=== PATIENT | male | born 1950 | race Caucasian/White ===

== ENCOUNTER 2023-05-10 18:48 | Emergency (ER) | payer OTHER ==
[2023-05-10 18:56] VITALS: TEMP 97.4; BMI 31.7
[2023-05-10] MEDS ORDERED: morphine CARPU-JECT 2 MG/1 ML DISP.SYRIN IVPUSH ONE (19:57)
[2023-05-10] MEDS ORDERED: TAMSULOSIN HCL 0.4 MG CAP PO ONE (19:58)
[2023-05-10 20:26] LABS: EPI CELLS 13 /uL (0-25.1); HYALINE CASTS 4 /uL (0-3.1); URINE APPEARANCE CLEAR; URINE BACTERIA 12 /uL (0-1359); URINE BILIRUBIN NEGATIVE (NEGATIVE); URINE COLOR YELLOW; URINE GLUCOSE (UA) NEGATIVE (NEGATIVE); URINE KETONE TRACE (NEGATIVE); URINE LEUK ESTERASE 1+ (NEGATIVE); URINE NITRITE NEGATIVE (NEGATIVE); URINE PROTEIN 1+ (NEGATIVE); URINE RBC 11 /uL (0-23.9); URINE WBC 206 /uL (0-25.8)
[2023-05-10] MEDS ORDERED: TAMSULOSIN HCL 0.4 MG CAP ONE (20:27)
[2023-05-10 20:48] LABS: BASO % 0.8 % (0-2.0); EOS % 1.1 % (0-4.5); HEMATOCRIT 37.5 % (35.4-49); HEMOGLOBIN 12.6 GM/dL (11.7-16.9); LYMPH % 15.5 % (8-40); MCHC 33.5 g/dl (32.0-35.9); MEAN CELL VOLUME 89.6 fl (80-96); MEAN PLT VOLUME 6.8 fl (7.5-11.1); MONO % 9.4 % (3.8-10.2); NEUT % 73.2 % (42.8-82.8); PLATELET COUNT 309 10^3/uL (134-434); RBC 4.19 M/mm3 (4.00-5.60); RDW 14.8 % (11.9-15.9); WHITE BLOOD COUNT 7.8 K/mm3 (4.0-10.0)
[2023-05-10 20:50] VITALS: RESP 20
[2023-05-10 21:10] LABS: ALBUMIN 3.6 g/dl (3.4-5.0); BLOOD UREA NITROGEN 15.1 mg/dL (7-18); CALCIUM 9.5 mg/dL (8.5-10.1)
[2023-05-10 21:14] LABS: CREATININE 1.2 mg/dL (0.55-1.3)
[2023-05-10 21:15] LABS: BILIRUBIN,TOTAL 0.6 mg/dL (0.2-1); TOT PROT 7.7 g/dl (6.4-8.2)
[2023-05-10] MEDS ORDERED: CEFTRIAXONE 1 GM in DEXTROSE 5%-WATER - 100 ML IVPB ONE (21:15)
[2023-05-10] MEDS ORDERED: LOSARTAN POTASSIUM 25 MG TABLET PO ONE (21:50)
[2023-05-10] MEDS ORDERED: LOSARTAN POTASSIUM 25 MG TABLET ONE (22:00)
[2023-05-10] MEDS ORDERED: CEFTRIAXONE 1 GM/50 ML BAG ONE (22:00)
[2023-05-10] MEDS ORDERED: amLODIPine BESYLATE 10 MG TABLET (FP) PO ONE (22:00)
[2023-05-10] MEDS ORDERED: amLODIPine BESYLATE 10 MG TABLET (FP) ONE (22:01)
[2023-05-10 22:18] VITALS: BP 168/99; PULSE 71
== END 2023-05-10 22:32 | disposition home or self-care (01) ==
LOC: JER 18:48
PROC: 3E03329 Introduction of Other Anti-infective into Peripheral Vein, Percutaneous Approach (ICD-10-PCS; principal; 2023-05-10)
PROC: 3E033GC Introduction of Other Therapeutic Substance into Peripheral Vein, Percutaneous Approach (ICD-10-PCS; 2023-05-10)
DX: R10.31 Right lower quadrant pain (principal); N39.0 Urinary tract infection, site not specified; I10 Essential (primary) hypertension; R30.9 Painful micturition, unspecified
CPT/HCPCS: 36415; 74176-TC; 80053; 81003; 85025; 87086; 93005; 93010; 99285-25

== ENCOUNTER 2023-05-11 18:42 | Inpatient (IN) | payer OTHER ==
[2023-05-11] MEDS ORDERED: morphine CARPU-JECT 2 MG/1 ML DISP.SYRIN IVPUSH ONE (19:49)
[2023-05-11 20:22] LABS: BASO % 1.2 % (0-2.0); EOS % 1.9 % (0-4.5); HEMATOCRIT 38.3 % (35.4-49); HEMOGLOBIN 12.9 GM/dL (11.7-16.9); LYMPH % 11.5 % (8-40); MCH 30.3 pg (25.7-33.7); MCHC 33.6 g/dl (32.0-35.9); MEAN CELL VOLUME 90.2 fl (80-96); MEAN PLT VOLUME 6.7 fl (7.5-11.1); MONO % 15.6 % (3.8-10.2); NEUT % 69.8 % (42.8-82.8); PLATELET COUNT 288 10^3/uL (134-434); RBC 4.25 M/mm3 (4.00-5.60); WHITE BLOOD COUNT 4.9 K/mm3 (4.0-10.0)
[2023-05-11 20:41] LABS: ALBUMIN 3.4 g/dl (3.4-5.0); BLOOD UREA NITROGEN 14.3 mg/dL (7-18); CALCIUM 9.2 mg/dL (8.5-10.1)
[2023-05-11 20:44] LABS: CREATININE 1.3 mg/dL (0.55-1.3)
[2023-05-11 20:46] LABS: BILIRUBIN,TOTAL 0.4 mg/dL (0.2-1); TOT PROT 7.7 g/dl (6.4-8.2)
[2023-05-11] MEDS ORDERED: ACETAMINOPHEN 1000 MG/100 ML BAG IVPB ONE (23:46)
[2023-05-11] MEDS ORDERED: morphine CARPU-JECT 4 MG/1 ML DISP.SYRIN IVPUSH ONE (23:46)
[2023-05-11] MEDS ORDERED: LIDOCAINE 5% TOPICAL PATCH TP ONE (23:47)
[2023-05-12] MEDS ORDERED: CEFTRIAXONE 1,000 MG in DEXTROSE 5%-WATER - 50 ML IVPB ONE (00:03)
[2023-05-12] MEDS ORDERED: ACETAMINOPHEN INJECTION 100 ML IVPB ONE (00:13)
[2023-05-12] MEDS ORDERED: LIDOCAINE 5% TOPICAL PATCH ONE (00:13)
[2023-05-12] MEDS ORDERED: CEFTRIAXONE 1 GM/50 ML BAG ONE (00:41)
[2023-05-12] MEDS ORDERED: oxyCODONE HCL 5 MG TABLET PO PRN ×2 (05:05→12:59)
[2023-05-12] MEDS ORDERED: GABAPENTIN 300 MG CAPSULE PO SCH (05:30)
[2023-05-12] MEDS ORDERED: SODIUM CHLORIDE 1,000 ML IV SCH (06:00)
[2023-05-12 09:08] VITALS: BMI 30.5
[2023-05-12 09:34] LABS: BASO % 1.4 % (0-2.0); EOS % 2.8 % (0-4.5); HEMATOCRIT 35.4 % (35.4-49); HEMOGLOBIN 11.9 GM/dL (11.7-16.9); LYMPH % 16.3 % (8-40); MCH 29.9 pg (25.7-33.7); MCHC 33.5 g/dl (32.0-35.9); MEAN CELL VOLUME 89.5 fl (80-96); MEAN PLT VOLUME 6.9 fl (7.5-11.1); MONO % 22.3 % (3.8-10.2); NEUT % 57.2 % (42.8-82.8); PLATELET COUNT 263 10^3/uL (134-434); RBC 3.96 M/mm3 (4.00-5.60); RDW 15.1 % (11.9-15.9); WHITE BLOOD COUNT 4.2 K/mm3 (4.0-10.0)
[2023-05-12 09:54] LABS: MAGNESIUM 2.1 mg/dL (1.8-2.4)
[2023-05-12 09:56] LABS: PHOSPHOROUS 4.4 mg/dL (2.5-4.9)
[2023-05-12] MEDS ORDERED: CEFTRIAXONE 1 GM in DEXTROSE 5%-WATER - 50 ML IVPB SCH (10:00)
[2023-05-12] MEDS ORDERED: FLUoxetine HCL 20 MG CAPSULE PO SCH (10:00)
[2023-05-12] MEDS: DULoxetine HCL 30 MG CAPSULE.DR PO SCH (10:03)
[2023-05-12] MEDS: LOSARTAN POTASSIUM 25 MG TABLET PO SCH (10:03)
[2023-05-12] MEDS: APIXABAN 5 MG TABLET PO SCH ×2 (10:03→21:10)
[2023-05-12] MEDS: PREGABALIN 75 MG CAPSULE PO SCH ×2 (10:03→21:11)
[2023-05-12 10:36] LABS: ANISOCYTOSIS 0; HELMET CELLS 0; HOWELL-JOLLY BODIES 0; MACROCYTOSIS 0; OVALOCYTE 0; ROULEAU 0; SICKELED CELLS 0; TARGET CELLS 0; TEAR DROP CELLS 0; TOXIC GRANULATION 0
[2023-05-12] MEDS ORDERED: LIDOCAINE PATCH REMOVAL MC ONE (12:00)
[2023-05-12 13:21] LABS: URINE APPEARANCE CLEAR; URINE BILIRUBIN 1+ (NEGATIVE); URINE COLOR DK YELLOW; URINE GLUCOSE (UA) NEGATIVE (NEGATIVE); URINE KETONE TRACE (NEGATIVE)
[2023-05-12 13:22] LABS: EPI CELLS 9 /uL (0-25.1); PH,URINE 5.5 (5.0-8.0); URINE LEUK ESTERASE NEGATIVE (NEGATIVE); URINE NITRITE NEGATIVE (NEGATIVE); URINE PROTEIN 1+ (NEGATIVE); URINE RBC 20 /uL (0-23.9); URINE WBC 103 /uL (0-25.8)
[2023-05-12 13:23] LABS: HYALINE CASTS 0.29 /uL (0-3.1); URINE BACTERIA 48 /uL (0-1359)
[2023-05-12 17:49] LABS: POTASSIUM 3.8 mmol/L (3.5-5.1)
[2023-05-12 17:51] LABS: BLOOD UREA NITROGEN 16.6 mg/dL (7-18); CALCIUM 8.8 mg/dL (8.5-10.1)
[2023-05-12 17:52] LABS: ALBUMIN 3.2 g/dl (3.4-5.0)
[2023-05-12 17:55] LABS: CREATININE 1.3 mg/dL (0.55-1.3)
[2023-05-12 17:56] LABS: BILIRUBIN,TOTAL 0.5 mg/dL (0.2-1); TOT PROT 6.9 g/dl (6.4-8.2)
[2023-05-12] MEDS: TERAZOSIN HCL 5 MG CAPSULE PO SCH (21:11)
[2023-05-12] MEDS: SENNOSIDES/DOCUSATE COMBO (SENNA PLUS) TABLET (UD) PO SCH (21:11)
[2023-05-13] MEDS: PREGABALIN 75 MG CAPSULE PO SCH ×2 (10:05→22:06)
[2023-05-13] MEDS: LOSARTAN POTASSIUM 25 MG TABLET PO SCH (10:05)
[2023-05-13] MEDS: DULoxetine HCL 30 MG CAPSULE.DR PO SCH (10:05)
[2023-05-13] MEDS: APIXABAN 5 MG TABLET PO SCH ×2 (10:05→22:06)
[2023-05-13 11:07] LABS: BASO % 1.8 % (0-2.0); EOS % 3.5 % (0-4.5); HEMATOCRIT 35.8 % (35.4-49); HEMOGLOBIN 12.2 GM/dL (11.7-16.9); LYMPH % 19.7 % (8-40); MCH 30.4 pg (25.7-33.7); MCHC 34.1 g/dl (32.0-35.9); MEAN CELL VOLUME 89.3 fl (80-96); MEAN PLT VOLUME 6.8 fl (7.5-11.1); MONO % 18.6 % (3.8-10.2); NEUT % 56.4 % (42.8-82.8); PLATELET COUNT 254 10^3/uL (134-434); RBC 4.01 M/mm3 (4.00-5.60); RDW 14.7 % (11.9-15.9)
[2023-05-13 11:36] LABS: POTASSIUM 3.6 mmol/L (3.5-5.1)
[2023-05-13 11:46] LABS: CALCIUM 8.8 mg/dL (8.5-10.1)
[2023-05-13 11:47] LABS: BLOOD UREA NITROGEN 12.7 mg/dL (7-18)
[2023-05-13 11:50] LABS: CREATININE 1.1 mg/dL (0.55-1.3); PHOSPHOROUS 3.5 mg/dL (2.5-4.9)
[2023-05-13] MEDS ORDERED: ACETAMINOPHEN 1000 MG/100 ML BAG IVPB ONE (15:03)
[2023-05-13] MEDS: ACETAMINOPHEN 325 MG TABLET (FP) PO SCH (20:12)
[2023-05-13] MEDS: SENNOSIDES/DOCUSATE COMBO (SENNA PLUS) TABLET (UD) PO SCH (22:06)
[2023-05-13] MEDS: TERAZOSIN HCL 5 MG CAPSULE PO SCH (22:06)
[2023-05-14] MEDS: ACETAMINOPHEN 325 MG TABLET (FP) PO SCH ×3 (02:54→20:25)
[2023-05-14] MEDS: PREGABALIN 75 MG CAPSULE PO SCH ×2 (09:27→22:42)
[2023-05-14] MEDS: APIXABAN 5 MG TABLET PO SCH ×2 (09:28→22:43)
[2023-05-14] MEDS: LOSARTAN POTASSIUM 25 MG TABLET PO SCH (09:28)
[2023-05-14] MEDS: DULoxetine HCL 30 MG CAPSULE.DR PO SCH (09:28)
[2023-05-14 09:51] LABS: BASO % 1.2 % (0-2.0); EOS % 6.6 % (0-4.5); HEMATOCRIT 38.6 % (35.4-49); HEMOGLOBIN 12.6 GM/dL (11.7-16.9); LYMPH % 31.2 % (8-40); MCH 29.9 pg (25.7-33.7); MCHC 32.6 g/dl (32.0-35.9); MEAN CELL VOLUME 91.6 fl (80-96); MEAN PLT VOLUME 7.4 fl (7.5-11.1); MONO % 13.4 % (3.8-10.2); NEUT % 47.6 % (42.8-82.8); PLATELET COUNT 279 10^3/uL (134-434); RBC 4.21 M/mm3 (4.00-5.60); RDW 14.8 % (11.9-15.9); WHITE BLOOD COUNT 4.1 K/mm3 (4.0-10.0)
[2023-05-14 10:16] LABS: BLOOD UREA NITROGEN 19.5 mg/dL (7-18)
[2023-05-14 10:17] LABS: ALBUMIN 3.2 g/dl (3.4-5.0)
[2023-05-14 10:18] LABS: CALCIUM 8.9 mg/dL (8.5-10.1)
[2023-05-14 10:19] LABS: MAGNESIUM 2.1 mg/dL (1.8-2.4); PHOSPHOROUS 3.6 mg/dL (2.5-4.9)
[2023-05-14 10:20] LABS: BILIRUBIN,TOTAL 0.4 mg/dL (0.2-1); CREATININE 1.1 mg/dL (0.55-1.3)
[2023-05-14 10:21] LABS: TOT PROT 7.3 g/dl (6.4-8.2)
[2023-05-14 14:06] VITALS: RESP 18
[2023-05-14] MEDS: oxyCODONE HCL 5 MG TABLET PO PRN (18:11)
[2023-05-14] MEDS: SENNOSIDES/DOCUSATE COMBO (SENNA PLUS) TABLET (UD) PO SCH (22:42)
[2023-05-14] MEDS: TERAZOSIN HCL 5 MG CAPSULE PO SCH (22:43)
[2023-05-15] MEDS: ACETAMINOPHEN 325 MG TABLET (FP) PO SCH ×2 (03:28→11:11)
[2023-05-15] MEDS: oxyCODONE HCL 5 MG TABLET PO PRN ×4 (06:52→19:31)
[2023-05-15 09:30] VITALS: TEMP 97.8
[2023-05-15] MEDS: LOSARTAN POTASSIUM 25 MG TABLET PO SCH (09:31)
[2023-05-15] MEDS: DULoxetine HCL 30 MG CAPSULE.DR PO SCH (09:31)
[2023-05-15] MEDS: APIXABAN 5 MG TABLET PO SCH (09:31)
[2023-05-15] MEDS: PREGABALIN 75 MG CAPSULE PO SCH (09:31)
[2023-05-15 13:28] VITALS: BP 125/63; PULSE 72
== END 2023-05-15 19:55 | disposition home or self-care (01) | DRG 563 ==
LOC: JER 18:42 → JERBED 05-12 02:43 → J6S 05-12 04:51
PROVIDERS: ADMIT Internal Medicine; ATTEND Internal Medicine
DX: S39.012A Strain of muscle, fascia and tendon of lower back, initial encounter (principal); I69.351 Hemiplegia and hemiparesis following cerebral infarction affecting right dominant side; I48.91 Unspecified atrial fibrillation; I44.7 Left bundle-branch block, unspecified; I44.0 Atrioventricular block, first degree; N40.0 Benign prostatic hyperplasia without lower urinary tract symptoms; L81.8 Other specified disorders of pigmentation; R80.9 Proteinuria, unspecified; R33.8 Other retention of urine; M54.9 Dorsalgia, unspecified; I12.9 Hypertensive chronic kidney disease with stage 1 through stage 4 chronic kidney disease, or unspecified chronic kidney disease; N18.9 Chronic kidney disease, unspecified; X58.XXXA Exposure to other specified factors, initial encounter; Y92.9 Unspecified place or not applicable; Y99.9 Unspecified external cause status
CPT/HCPCS: 36415; 72148-TC; 74177-TC; 80048; 80053; 81003; 83605; 83735; 84100; 84484; 85025; 85027; 87086; 93005; 93010; 97116-GP; 97162-GP; 99285-25; Q9967

== ENCOUNTER 2023-05-19 17:40 | Emergency (ER) | payer OTHER ==
[2023-05-19 17:53] VITALS: BP 143/69; PULSE 67; RESP 18; TEMP 99; BMI 32.1
== END 2023-05-19 19:52 | disposition left against medical advice (07) ==
LOC: JER 17:40
DX: M54.9 Dorsalgia, unspecified (principal)
CPT/HCPCS: 99281-25

== ENCOUNTER 2023-05-20 09:31 | Inpatient (IN) | payer OTHER ==
[2023-05-20 09:48] VITALS: BMI 32.1
[2023-05-20] MEDS ORDERED: LIDOCAINE 5% TOPICAL PATCH TP ONE (10:55)
[2023-05-20] MEDS ORDERED: LIDOCAINE 5% TOPICAL PATCH ONE (11:31)
[2023-05-20 12:15] LABS: BASO % 0.8 % (0-2.0); EOS % 3.3 % (0-4.5); HEMATOCRIT 38.7 % (35.4-49); HEMOGLOBIN 12.5 GM/dL (11.7-16.9); LYMPH % 24.7 % (8-40); MCH 29.7 pg (25.7-33.7); MCHC 32.4 g/dl (32.0-35.9); MEAN CELL VOLUME 91.7 fl (80-96); MEAN PLT VOLUME 7.4 fl (7.5-11.1); NEUT % 63.2 % (42.8-82.8); PLATELET COUNT 311 10^3/uL (134-434); RBC 4.22 M/mm3 (4.00-5.60); RDW 14.6 % (11.9-15.9); WHITE BLOOD COUNT 6.1 K/mm3 (4.0-10.0)
[2023-05-20 12:24] LABS: INR 1.09 (0.83-1.09); PROTHROMBIN TIME (PATIENT) 12.6 SEC (9.7-13.0)
[2023-05-20 12:26] LABS: ACTIVATED PTT 33.4 SECONDS (25.2-36.5)
[2023-05-20] MEDS ORDERED: morphine CARPU-JECT 4 MG/1 ML DISP.SYRIN IVPUSH ONE (12:37)
[2023-05-20 12:50] LABS: ALBUMIN 3.5 g/dl (3.4-5.0); BLOOD UREA NITROGEN 16.8 mg/dL (7-18); CALCIUM 9.3 mg/dL (8.5-10.1)
[2023-05-20 12:53] LABS: CREATININE 1.1 mg/dL (0.55-1.3)
[2023-05-20 12:55] LABS: BILIRUBIN,TOTAL 0.3 mg/dL (0.2-1); TOT PROT 7.7 g/dl (6.4-8.2)
[2023-05-20] MEDS ORDERED: morphine SULFATE 4 MG/ML VIAL ONE (13:24)
[2023-05-20] MEDS ORDERED: oxyCODONE HCL 5 MG TABLET PO PRN (13:31)
[2023-05-20] MEDS ORDERED: ACETAMINOPHEN 500 MG TABLET (FP) PO PRN (13:32)
[2023-05-20] MEDS ORDERED: APIXABAN 5 MG TABLET ONE (22:56)
[2023-05-20] MEDS ORDERED: PREGABALIN 50 MG CAPSULE ONE (22:56)
[2023-05-20] MEDS ORDERED: PREGABALIN 25 MG CAPSULE ONE (22:56)
[2023-05-20] MEDS ORDERED: oxyCODONE HCL 5 MG TABLET ONE (22:57)
[2023-05-20] MEDS: PREGABALIN 75 MG CAPSULE PO SCH (23:46)
[2023-05-20] MEDS: APIXABAN 5 MG TABLET PO SCH (23:46)
[2023-05-20] MEDS: LIDOCAINE PATCH REMOVAL MC SCH (23:46)
[2023-05-20] MEDS: SENNOSIDES/DOCUSATE COMBO (SENNA PLUS) TABLET (UD) PO SCH (23:46)
[2023-05-21] MEDS: METOPROLOL TARTRATE 25 MG TABLET (FP) PO SCH ×4 (03:18→21:23)
[2023-05-21] MEDS: LIDOCAINE 5% TOPICAL PATCH TP SCH (09:32)
[2023-05-21] MEDS: APIXABAN 5 MG TABLET PO SCH ×2 (09:32→21:23)
[2023-05-21] MEDS: SIMETHICONE 80 MG TAB.CHEW (FP) PO PRN (13:45)
[2023-05-21] MEDS: ACETAMINOPHEN 500 MG TABLET (FP) PO SCH ×2 (13:45→21:21)
[2023-05-21] MEDS: DULoxetine HCL 30 MG CAPSULE.DR PO SCH (14:30)
[2023-05-21] MEDS: PREGABALIN 75 MG CAPSULE PO SCH ×2 (14:30→21:21)
[2023-05-21] MEDS: oxyCODONE HCL 5 MG TABLET PO PRN (16:31)
[2023-05-21] MEDS: SENNOSIDES/DOCUSATE COMBO (SENNA PLUS) TABLET (UD) PO SCH (21:22)
[2023-05-21] MEDS: TERAZOSIN HCL 5 MG CAPSULE PO SCH (21:23)
[2023-05-21] MEDS: LIDOCAINE PATCH REMOVAL MC SCH (21:24)
[2023-05-22] MEDS: oxyCODONE HCL 5 MG TABLET PO PRN ×4 (01:08→16:36)
[2023-05-22] MEDS: ACETAMINOPHEN 500 MG TABLET (FP) PO SCH ×3 (05:22→22:11)
[2023-05-22] MEDS: LIDOCAINE 5% TOPICAL PATCH TP SCH (09:53)
[2023-05-22] MEDS: DULoxetine HCL 30 MG CAPSULE.DR PO SCH (09:53)
[2023-05-22] MEDS: METOPROLOL TARTRATE 25 MG TABLET (FP) PO SCH ×2 (09:53→22:11)
[2023-05-22] MEDS: SIMETHICONE 80 MG TAB.CHEW (FP) PO PRN (09:53)
[2023-05-22] MEDS: APIXABAN 5 MG TABLET PO SCH ×2 (09:53→22:11)
[2023-05-22] MEDS: PREGABALIN 75 MG CAPSULE PO SCH ×3 (09:54→22:11)
[2023-05-22] MEDS: SENNOSIDES/DOCUSATE COMBO (SENNA PLUS) TABLET (UD) PO SCH (22:11)
[2023-05-22] MEDS: TERAZOSIN HCL 5 MG CAPSULE PO SCH (22:12)
[2023-05-22] MEDS: LIDOCAINE PATCH REMOVAL MC SCH (22:13)
[2023-05-22 22:50] VITALS: RESP 18
[2023-05-23] MEDS: oxyCODONE HCL 5 MG TABLET PO PRN ×2 (04:50→11:45)
[2023-05-23] MEDS: SIMETHICONE 80 MG TAB.CHEW (FP) PO PRN (05:33)
[2023-05-23] MEDS: ACETAMINOPHEN 500 MG TABLET (FP) PO SCH ×2 (05:33→14:49)
[2023-05-23] MEDS: METOPROLOL TARTRATE 25 MG TABLET (FP) PO SCH (10:53)
[2023-05-23] MEDS: DULoxetine HCL 30 MG CAPSULE.DR PO SCH (10:53)
[2023-05-23] MEDS: LIDOCAINE 5% TOPICAL PATCH TP SCH (10:54)
[2023-05-23] MEDS: PREGABALIN 75 MG CAPSULE PO SCH (10:54)
[2023-05-23] MEDS: APIXABAN 5 MG TABLET PO SCH (10:54)
[2023-05-23 14:05] VITALS: BP 142/77; PULSE 53; TEMP 97.6
== END 2023-05-23 15:32 | disposition home or self-care (01) | DRG 552 ==
LOC: JER 09:31 → JERFT 09:31 → JERBED 13:46 → J7W 05-21 02:41 → OBSVTOIN 05-22 14:55
PROVIDERS: ADMIT Internal Medicine; ATTEND Internal Medicine
DX: M48.061 Spinal stenosis, lumbar region without neurogenic claudication (principal); F11.20 Opioid dependence, uncomplicated; M54.16 Radiculopathy, lumbar region; M54.31 Sciatica, right side; G89.29 Other chronic pain; I48.91 Unspecified atrial fibrillation; Z86.73 Personal history of transient ischemic attack (TIA), and cerebral infarction without residual deficits
CPT/HCPCS: 36415; 80053; 82977; 85025; 85610; 85730; 86850; 86900; 86901; 97116-GP; 97161-GP; 99285-25; G0378

== ENCOUNTER 2023-06-10 04:38 | Day surgery (SDC) | payer OTHER ==
[2023-06-06 13:57] VITALS: BMI 31.4
[2023-06-10] MEDS ORDERED: LIDOCAINE HCL/PF 1% SDV 5ML VIAL ONE (07:32)
[2023-06-10] MEDS ORDERED: DEXAMETHASONE SOD PHOSPHATE 10 MG/1 ML VIAL ONE (07:32)
[2023-06-10 11:56] VITALS: RESP 18
[2023-06-10] MEDS ORDERED: ACETAMINOPHEN 500 MG TABLET (FP) PO PRN (12:59)
[2023-06-10] MEDS ORDERED: IOHEXOL 180 MG/1 ML ML IJ ONE (13:43)
[2023-06-10] MEDS ORDERED: LIDOCAINE HCL 1% PRESERVATIVE FREE - 30ML VIAL IJ ONE (13:43)
[2023-06-10] MEDS ORDERED: DEXAMETHASONE SOD PHOSPHATE 10 MG/1 ML VIAL IVPUSH ONE (13:43)
[2023-06-10 14:18] VITALS: BP 142/72; PULSE 52; TEMP 97.3
== END 2023-06-10 14:38 | disposition home or self-care (01) ==
LOC: JASU-SURG 04:38
PROVIDERS: ATTEND Pain Medicine Pain Medicine
PROC: 3E0R3BZ Introduction of Anesthetic Agent into Spinal Canal, Percutaneous Approach (ICD-10-PCS; 2023-06-10)
PROC: 3E0R33Z Introduction of Anti-inflammatory into Spinal Canal, Percutaneous Approach (ICD-10-PCS; principal; 2023-06-10 13:30)
DX: M54.16 Radiculopathy, lumbar region (principal)
CPT/HCPCS: 76000-TC-FY; J1100

== ENCOUNTER 2023-06-30 19:05 | Emergency (ER) | payer OTHER ==
[2023-06-30 19:16] VITALS: RESP 16; TEMP 98.8; BMI 31.4
[2023-06-30] MEDS ORDERED: KETOROLAC TROMETHAMINE 15 MG/ML VIAL IM ONE (20:53)
[2023-06-30] MEDS ORDERED: KETOROLAC TROMETHAMINE 30 MG/1 ML VIAL IM ONE (20:57)
[2023-06-30] MEDS ORDERED: KETOROLAC TROMETHAMINE 30 MG/1 ML VIAL ONE (21:12)
[2023-06-30] MEDS ORDERED: METOPROLOL TARTRATE 50 MG TABLET (FP) PO ONE (21:29)
[2023-06-30] MEDS ORDERED: APIXABAN 5 MG TABLET PO ONE (21:32)
[2023-06-30] MEDS ORDERED: APIXABAN 5 MG TABLET ONE (21:48)
[2023-06-30] MEDS ORDERED: metoPROLOL SUCCINATE 25 MG TAB.SR.24H (FP) PO ONE (21:48)
[2023-06-30] MEDS ORDERED: METOPROLOL TARTRATE 25 MG TABLET (FP) ONE (21:54)
[2023-06-30] MEDS ORDERED: TERAZOSIN HCL 5 MG CAPSULE PO SCH (22:00)
[2023-06-30 22:51] VITALS: BP 139/81; PULSE 69
== END 2023-06-30 22:55 | disposition home or self-care (01) ==
LOC: JER 19:05
PROC: 3E0333Z Introduction of Anti-inflammatory into Peripheral Vein, Percutaneous Approach (ICD-10-PCS; principal; 2023-06-30)
DX: M54.16 Radiculopathy, lumbar region (principal); G89.29 Other chronic pain; M54.50 Low back pain, unspecified
CPT/HCPCS: 99284-25

== ENCOUNTER 2025-05-19 07:05 | Inpatient (IN) | payer OTHER ==
[2025-05-19] MEDS ORDERED: VANCOMYCIN 1 GM PREMIX (F) 1 GM/200 ML BAG ONE (07:53)
[2025-05-19] MEDS ORDERED: PIPERACILLIN/TAZOB 4.5 GM 4.5 GM/100 ML BAG IVPB ONE (08:07)
[2025-05-19] MEDS: SODIUM CHLORIDE 0.9% 500 ML INFUS.BAG IV ONE ×2 (08:12→08:54)
[2025-05-19] MEDS: PIPERACILLIN/TAZOB 4.5 GM 4.5 GM in DEXTROSE 5%-WATER 100 ML IVPB ONE (08:12)
[2025-05-19 08:16] LABS: ABSOLUTE IMMATURE GRANULOCYTES 0.01 x10^3/uL (0.0-0.031); BASOPHILS # 0.03 x10^3/uL (0.01-0.08); EOSINOPHIL % 2.6 % (0.8-7.0); EOSINOPHILS # 0.19 x10^3/uL (0.04-0.54); MCHC 32.1 g/dl (32.3-36.5); MEAN CELL VOLUME 97.2 fl (79.0-92.2); MEAN PLT VOLUME 8.5 fl (9.4-12.4); MONOCYTE # 0.58 x10^3/uL (0.30-0.82); MONOCYTE % 7.8 % (5.3-12.2); RDW 12.3 % (12.2-16.6)
[2025-05-19] MEDS ORDERED: ACETAMINOPHEN INJECTION 100 ML ONE (08:19)
[2025-05-19] MEDS: ACETAMINOPHEN 1000 MG/100 ML BAG IVPB ONE (08:23)
[2025-05-19 08:28] LABS: GLUCOSE,RANDOM 104 mg/dL (74-106); TOT PROT 7.1 g/dl (6.4-8.2)
[2025-05-19 08:28] LABS: BG HCT 39.0 % (35.4-49); VENOUS BASE EXCESS 3.5 mmol/L (-2-2); VENOUS O2 SATURATION 17.7 % (70-80); VENOUS PCO2 49.7 mmHg (38-52); VENOUS PH 7.390 (7.310-7.410)
[2025-05-19 08:29] LABS: CO2 22 mmol/L (21-32); INR 1.16 (0.83-1.09); PROTHROMBIN TIME (PATIENT) 12.6 SEC (9.7-13.0)
[2025-05-19] MEDS: IBUPROFEN (CALDOLOR) 800 MG/200 ML PREMIX BAGS IVPB ONE (08:29)
[2025-05-19] MEDS ORDERED: IBUPROFEN 800 MG/8 ML IJ IVPB ONE (08:30)
[2025-05-19 08:31] LABS: ALK PHOS 137 U/L (40-150)
[2025-05-19 08:32] LABS: ACTIVATED PTT 28.5 SECONDS (25.2-36.5)
[2025-05-19 08:33] LABS: EPI CELLS 19 /uL (0-25.1); HYALINE CASTS 1 /uL (0-3.1); URINE APPEARANCE CLEAR; URINE BACTERIA 6 /uL (0-1359); URINE BILIRUBIN NEGATIVE (NEGATIVE); URINE COLOR YELLOW; URINE GLUCOSE (UA) NEGATIVE (NEGATIVE); URINE KETONE NEGATIVE (NEGATIVE); URINE LEUK ESTERASE NEGATIVE (NEGATIVE); URINE NITRITE NEGATIVE (NEGATIVE); URINE PROTEIN NEGATIVE (NEGATIVE); URINE RBC 41 /uL (0-23.9); URINE UROBILINOGEN 1.0 mg/dL (0.2-1.0); URINE WBC 21 /uL (0-25.8)
[2025-05-19 08:34] LABS: CREATININE 1.59 mg/dL (0.55-1.3); LDL CHOLESTEROL (ONLY SJRH) 87 mg/dL (5-100); SGOT/AST 21 U/L (5-34); SGPT/ALT 14 U/L (0-55)
[2025-05-19 10:00] LABS: COCAINE, UR NEGATIVE (NEGATIVE)
[2025-05-19 10:01] LABS: OPIATES, URI POSITIVE (NEGATIVE); PHENCYCLIDINE,URINE NEGATIVE (NEGATIVE); URINE AMPHETAMINES POSITIVE (NEGATIVE); URINE BARBITURATES NEGATIVE (NEGATIVE)
[2025-05-19 10:02] LABS: METHADONE, UR NEGATIVE (NEGATIVE); URINE BENZODIAZEPINES NEGATIVE (NEGATIVE)
[2025-05-19] MEDS: ATORVASTATIN CA 40 MG TABLET (FP) PO ONE (11:01)
[2025-05-19] MEDS ORDERED: GABAPENTIN 300 MG CAPSULE PO PRN (11:01)
[2025-05-19] MEDS ORDERED: OXYCODONE HCL 15 MG PO PRN (11:01)
[2025-05-19] MEDS: ASPIRIN 325 MG ENTERIC COATED TABLET (FP) PO ONE (11:01)
[2025-05-19] MEDS: CLOPIDOGREL BISULFATE 75 MG TABLET (FP) PO SCH (11:01)
[2025-05-19] MEDS: AMPICILLIN SODIUM 250 MG VIAL IVPB ONE (11:01)
[2025-05-19] MEDS ORDERED: CLOPIDOGREL BISULFATE 75 MG TABLET (FP) ONE (11:02)
[2025-05-19] MEDS ORDERED: ASPIRIN 325 MG ENTERIC COATED TABLET (FP) ONE (11:02)
[2025-05-19] MEDS ORDERED: ATORVASTATIN CA 80 MG TABLET (FP) ONE (11:02)
[2025-05-19] MEDS ORDERED: AMPICILLIN SODIUM 2 GM VIAL ONE (11:02)
[2025-05-19 11:29] LABS: N-TERMINAL BNP 1123.4 pg/mL (0-299.9)
[2025-05-19] MEDS ORDERED: PNEUMOC 20-VAL CONJ-DIP CRM/PF 0.5 ML SYRINGE IM ONE (12:23)
[2025-05-19] MEDS: HEPARIN NA (PORCINE) 5,000 UNITS/ML 1ML VIAL SQ SCH (15:10)
[2025-05-19] MEDS: CEFTRIAXONE 2 GM in DEXTROSE 5%-WATER 100 ML IVPB ONE (15:10)
[2025-05-19] MEDS ORDERED: CEFTRIAXONE 2 GM-D5W BAG 2 GM/50 ML BAG IVPB ONE (15:11)
[2025-05-19] MEDS ORDERED: HEPARIN NA (PORCINE) 5,000 UNITS/ML 1ML VIAL ONE (15:11)
[2025-05-19 17:44] VITALS: BMI 39.3
[2025-05-19] MEDS: ACETAMINOPHEN 325 MG TABLET (FP) PO PRN (18:21)
[2025-05-19] MEDS: TERAZOSIN HCL 5 MG CAPSULE PO SCH (22:09)
[2025-05-20] MEDS: GABAPENTIN 300 MG CAPSULE PO PRN (01:35)
[2025-05-20 07:01] LABS: ABSOLUTE IMMATURE GRANULOCYTES 0.03 x10^3/uL (0.0-0.031); BASOPHILS # 0.04 x10^3/uL (0.01-0.08); EOSINOPHIL % 2.6 % (0.8-7.0); EOSINOPHILS # 0.17 x10^3/uL (0.04-0.54); MCHC 32.0 g/dl (32.3-36.5); MEAN CELL VOLUME 97.9 fl (79.0-92.2); MEAN PLT VOLUME 9.2 fl (9.4-12.4); MONOCYTE # 0.72 x10^3/uL (0.30-0.82); MONOCYTE % 10.9 % (5.3-12.2); RDW 12.7 % (12.2-16.6)
[2025-05-20 07:53] LABS: GLUCOSE,RANDOM 94.0 mg/dL (74-106)
[2025-05-20 07:54] LABS: TOT PROT 6.3 g/dl (6.4-8.2)
[2025-05-20 07:55] LABS: CO2 23.0 mmol/L (21-32)
[2025-05-20 07:56] LABS: ALK PHOS 148.0 U/L (40-150)
[2025-05-20 07:59] LABS: SGOT/AST 26.0 U/L (5-34); SGPT/ALT 12.0 U/L (0-55)
[2025-05-20 08:01] LABS: IRON SERUM 14.0 ug/dL (50-175); LDL CHOLESTEROL (ONLY SJRH) 73.0 mg/dL (5-100)
[2025-05-20 08:06] LABS: CREATININE 1.35 mg/dL (0.55-1.3)
[2025-05-20] MEDS: CEFTRIAXONE 2 GM in DEXTROSE 5%-WATER 100 ML IVPB SCH (09:45)
[2025-05-20] MEDS ORDERED: TERAZOSIN HCL 5 MG CAPSULE PO SCH (10:00)
[2025-05-20] MEDS ORDERED: FUROSEMIDE 40 MG/4 ML INJECTABLE VIAL IVPUSH SCH (10:00)
[2025-05-20] MEDS ORDERED: LOSARTAN POTASSIUM 50 MG TABLET PO SCH (10:00)
[2025-05-20 13:06] LABS: N-TERMINAL BNP 3334.1 pg/mL (0-299.9)
[2025-05-20] MEDS: ASPIRIN COATED 81 MG TABLET.EC PO SCH (16:56)
[2025-05-20] MEDS: MAGNESIUM SULF 50% (8.12 MEQ/2 ML-1 GM VIAL) IVPB ONE (19:29)
[2025-05-20] MEDS: APIXABAN 5 MG TABLET PO SCH (21:18)
[2025-05-20] MEDS: ATORVASTATIN CA 80 MG TABLET (FP) PO SCH (21:18)
[2025-05-21 02:03] VITALS: RESP 18
[2025-05-21] MEDS ORDERED: FUROSEMIDE 40 MG/4 ML INJECTABLE VIAL IVPUSH SCH (08:00)
[2025-05-21] MEDS: TORSEMIDE 20 MG TABLET (FP) PO SCH (09:15)
[2025-05-21 14:00] VITALS: BP 159/96; PULSE 68; TEMP 98.2
[2025-05-21] MEDS ORDERED: PRAMIPEXOLE DIHYDROCHLORIDE 0.125 MG TABLET PO SCH (22:00)
== END 2025-05-21 17:57 | disposition home or self-care (01) | DRG 193 ==
LOC: JER 07:05 → JERBED 09:43 → J6W TELE 15:42
PROVIDERS: ADMIT Student in an Organized Health Care Education/Training Program; ATTEND Internal Medicine
PROC: 4A10X4Z Monitoring of Central Nervous Electrical Activity, External Approach (ICD-10-PCS; principal; 2025-05-19)
DX: J18.9 Pneumonia, unspecified organism (principal); G93.41 Metabolic encephalopathy; I50.33 Acute on chronic diastolic (congestive) heart failure; N17.9 Acute kidney failure, unspecified; G62.9 Polyneuropathy, unspecified; D64.9 Anemia, unspecified; I44.7 Left bundle-branch block, unspecified; I48.0 Paroxysmal atrial fibrillation; R55 Syncope and collapse; G25.81 Restless legs syndrome; I11.0 Hypertensive heart disease with heart failure; I25.10 Atherosclerotic heart disease of native coronary artery without angina pectoris
CPT/HCPCS: 36415; 70450-TC; 70496-TC; 70498-TC; 71045-TC-FY; 80053; 80061; 80307; 81003; 82140; 82550; 82728; 82803; 82962; 83036; 83540; 83550; 83605; 83690; 83735; 83880; 84100; 84436; 84439; 84443; 84484; 85025; 85610; 85730; 86850; 86900; 86901; 87040; 87086; 87633; 87637-QW; 87899; 93005; 93010; 93306-TC; 95816; 97116-GP; 97162-GP; 99291; Q9967